=== PATIENT | male | born 1960 | race Caucasian/White ===

== ENCOUNTER → 2020-06-14 | Outpatient (CLI) | payer BC ==
[~2020-06-14] MED LIST: AMIODARONE HCL400 MG PO; ASPIRIN EC81 MG PO; CORDARONE 200M200 MG PO; COUMADIN4 MG PO; COUMADIN6 MG PO; GLUCOPHAGE 500500 MG PO; GLUCOPHAGE500 MG PO; IMDUR ER TAB 3030 MG PO; LEVOTHYROXINE50 MCG PO; LIPITOR TAB 2020 MG PO; METOPROLOL TART25 MG PO; MINOCYCLINE HCL50 M1 PO; VITAMIN D350000 UNIT PO; WARFARIN SODIUM6 MG PO
== END ==
LOC: HEART 5 09:02
DX: R06.02 Shortness of breath (principal); Z79.899 Other long term (current) drug therapy
CPT/HCPCS: 94010; 94729

== ENCOUNTER → 2020-06-26 | Outpatient (CLI) | payer BC | LOC: HEART 5 13:14 | DX: I48.19 Other persistent atrial fibrillation (principal); I10 Essential (primary) hypertension; R06.02 Shortness of breath; I08.3 Combined rheumatic disorders of mitral, aortic and tricuspid valves; I27.20 Pulmonary hypertension, unspecified | CPT/HCPCS: 93306 ==

== ENCOUNTER → 2020-10-11 | Outpatient (CLI) | payer BC | LOC: EXRD 09:18 | DX: K76.0 Fatty (change of) liver, not elsewhere classified (principal) | CPT/HCPCS: 76700 ==

== ENCOUNTER → 2021-01-10 | Outpatient (CLI) | payer BC ==
[~2021-01-10] MED LIST changes: +VITAMIN E400 UNI1 PO
[2021-01-10 08:21] LABS: HEMOGLOBIN 14.9 gm/dl (14.0-17.5); RED BLOOD COUNT 4.76 M/UL (4.20-5.50); WHITE BLOOD COUNT 6.5 K/UL (4.5-11.0)
== END ==
LOC: CATH 07:30
PROVIDERS: Internal Medicine Cardiovascular Disease
DX: I48.19 Other persistent atrial fibrillation (principal)
CPT/HCPCS: 36415; 80048; 82962; 85027; 92960; 93005; J1200; J1742; J2250; J2310; J3010

== ENCOUNTER → 2021-03-19 | Outpatient (CLI) | payer BC | LOC: HEART 5 14:23 | DX: I48.91 Unspecified atrial fibrillation (principal) ==

== ENCOUNTER 2021-04-16 13:54 | Emergency (ER) | payer BC ==
[2021-04-16 14:49] LABS: RED BLOOD COUNT 4.71 M/UL (4.20-5.50); WHITE BLOOD COUNT 6.5 K/UL (4.5-11.0)
[2021-04-16 15:38] LABS: BUN/CREATININE RATIO 18 (0-10)
[2021-04-16] MEDS ORDERED: HYDROCODON-ACE1 EAC4 PO ×2 (18:49→18:50)
== END 2021-04-16 20:05 | disposition home or self-care (01) ==
LOC: ER1 13:54
PROVIDERS: Student in an Organized Health Care Education/Training Program
DX: R07.9 Chest pain, unspecified (principal); M25.511 Pain in right shoulder; I48.91 Unspecified atrial fibrillation; I11.9 Hypertensive heart disease without heart failure; Z20.822 Contact with and (suspected) exposure to COVID-19; E11.9 Type 2 diabetes mellitus without complications; E78.5 Hyperlipidemia, unspecified; Z79.84 Long term (current) use of oral hypoglycemic drugs; Z90.49 Acquired absence of other specified parts of digestive tract
CPT/HCPCS: 71045; 80053; 82550; 82553; 83874; 84484; 85025; 93005; 99285; J1885; U0002

== ENCOUNTER → 2021-10-03 | Outpatient (CLI) | payer BC ==
[~2021-10-03] MED LIST changes: +HYDROCODON-ACE1 EAC4 PO
== END ==
LOC: HEART 5 09:06
DX: R06.02 Shortness of breath (principal); Z79.899 Other long term (current) drug therapy
CPT/HCPCS: 94010; 94729